=== PATIENT | female | born 1970 | race Caucasian/White ===

== ENCOUNTER 2017-01-26 05:29 | Day surgery (SDC) | payer MEDICAID ==
[2017-01-26] MEDS ORDERED: Propofol 200 MG/20 ML SDV ONE (05:55)
[2017-01-26] MEDS ORDERED: fentaNYL 100 MCG/2 ML SDV ONE (05:56)
[2017-01-26] MEDS ORDERED: Midazolam 1 MG/ML 2 ML SDV ONE (05:56)
[2017-01-26] MEDS ORDERED: Lactated Ringers 1,000 ML IV SCH ×2 (06:30)
[2017-01-26] MEDS ORDERED: Cyanocobalamin (Vitamin B12) 1,000 MCG/ML SDV IM ONE (07:30)
[2017-01-26] MEDS ORDERED: Glycopyrrolate 0.2 MG/ML 2 ML SDV IVPUSH ONE (07:30)
[2017-01-26] MEDS ORDERED: MVI, Adult with Vitamin K 10 ML, Thiamine 200 MG, Chromium/Copper/Mang/Selen/Zn 1 ML in... IV ONE ×4 (08:30)
--- NOTE | 2017-01-28 13:41 | OR ---
DATE OF PROCEDURE: 01/26/2017 PREOPERATIVE DIAGNOSIS: Weight regain along with marked problems with esophageal reflux and intermittent aspiration of gastric contents, status post gastric band placement. POSTOPERATIVE DIAGNOSES: 1. Marked esophageal dilation with retained bile and ingested solid food above laparoscopic adjustable gastric band. 2. Mild antral gastritis. OPERATIVE PROCEDURE: Esophagogastroduodenoscopy with antral biopsies for CLOtest. ANESTHESIA: IV sedation. INDICATIONS FOR PROCEDURE: This is a 46-year-old female presenting with multiple problems with weight regain along the problems with increasingly severe heartburn and intermittent aspiration of esophageal contents. The patient presently has all of the food removed and is to undergo upper GI endoscopy for diagnostic purposes. Potential risks of the procedure including bleeding and perforation were discussed, and the patient wishes to proceed. DETAILS OF PROCEDURE: The patient was taken to the operating room and placed in a left lateral decubitus position. IV sedation was administered, after which the upper GI endoscope was passed orally through the length of the esophagus and into the area above the band. The band appeared to be appropriately located. There was some bilious material as well as retained ingested solids within the esophagus and uppermost stomach above the band and it is associated with a marked dilation of the esophagus. The outlet through the imprint of the band was widely open. There was no mechanical obstruction within the stomach. There was some mild patchy redness in the antrum, but no erosions or ulcers and the visualized portion of the pyloric channel and duodenum were unremarkable. At this point, biopsies were taken from the antrum and sent for CLOtest for H. pylori. Minimal bleeding from the biopsy sites was seen and the procedure was then concluded. The patient would appear to be someone who by necessity needs to have the band removed and convert to Samuel-en-Y gastric bypass status. Given the above findings her insurance company will be contacted regarding prior authorization for that revision. Chris Arellano MD /[id number]
== END 2017-01-26 09:02 | disposition home or self-care (01) ==
LOC: JP.SDS 05:29
PROVIDERS: ATTEND Surgery
DX: K29.50 Unspecified chronic gastritis without bleeding (principal); K95.09 Other complications of gastric band procedure; K22.8 Other specified diseases of esophagus; I10 Essential (primary) hypertension; Z88.0 Allergy status to penicillin; Z91.040 Latex allergy status
CPT/HCPCS: 43239; 87081; J2250; J2704; J3010; J3420; J7120; J3490

== ENCOUNTER 2017-03-30 06:56 | Inpatient (IN) | payer MEDICAID ==
[2017-03-30] MEDS ORDERED: Dextrose 5%-Lactated Ringers 1,000 ML IV SCH ×2 (07:30→17:15)
[2017-03-30] MEDS ORDERED: Celecoxib 200 MG Cap PO ONE (08:00)
[2017-03-30] MEDS ORDERED: Acetaminophen 500 MG Tab PO ONE (08:00)
[2017-03-30] MEDS ORDERED: Gabapentin 300 MG Cap PO ONE (08:00)
[2017-03-30] MEDS ORDERED: Scopolamine 1.5 MG Transdermal Patch TOP SCH (08:00)
[2017-03-30] MEDS ORDERED: Propofol 200 MG/20 ML SDV ONE (09:12)
[2017-03-30] MEDS ORDERED: Neostigmine Methylsulfate 1 MG/ML 5 ML Syringe ONE (09:12)
[2017-03-30] MEDS ORDERED: Ondansetron 4 MG/2 ML SDV ONE (09:12)
[2017-03-30] MEDS ORDERED: Succinylcholine 200 MG/10 ML MDV ONE (09:12)
[2017-03-30] MEDS ORDERED: Glycopyrrolate 0.2 MG/ML 5 ML MDV ONE (09:12)
[2017-03-30] MEDS ORDERED: Dexamethasone 4 MG/ML SDV ONE (09:12)
[2017-03-30] MEDS ORDERED: Rocuronium 50 MG/5 ML Vial ONE ×2 (09:12→14:38)
[2017-03-30] MEDS ORDERED: Lidocaine 2% 100 MG/5 ML Syringe IVPUSH ONE (10:00)
[2017-03-30] MEDS ORDERED: Ketamine 500 MG/5 ML MDV IV SCH (10:00)
[2017-03-30] MEDS ORDERED: Ropivacaine 60 ML, Dexamethasone 8 MG, EPINEPHrine 0.4 MG, Sodium Chloride 0.9% 17.6 ML NERVRT SCH ×4 (10:00)
[2017-03-30] MEDS ORDERED: Meropenem 500 MG in Premix Bag 1 BAG IV ONE (10:00)
[2017-03-30] MEDS ORDERED: cefOXitin 2 GM Vial ONE (10:55)
[2017-03-30] MEDS ORDERED: Bupivacaine 0.5%/EPINEPHrine 1:200,000 50 ML MDV ONE (10:56)
[2017-03-30] MEDS ORDERED: Meropenem 500 MG SDV ONE (12:48)
[2017-03-30] MEDS ORDERED: Labetalol 20 MG/4 ML Syringe ONE (14:21)
[2017-03-30] MEDS ORDERED: fentaNYL 100 MCG/2 ML SDV ONE (16:08)
[2017-03-30] MEDS ORDERED: Lactated Ringers 1,000 ML ONE ×2 (16:08)
[2017-03-30] MEDS: Insulin Aspart 100 Units/ML 3 ML Pen SUBCUT PRN ×2 (17:16→21:27)
[2017-03-30] MEDS: Lidocaine 0.4%/D5W 2 GM/500 ML BAG IV SCH (17:55)
[2017-03-30] MEDS ORDERED: Labetalol 20 MG/4 ML Syringe IVPUSH PRN (18:00)
[2017-03-30] MEDS ORDERED: Metoclopramide 10 MG/2 ML SDV IVPUSH PRN (18:00)
[2017-03-30] MEDS ORDERED: Glucagon,Human Recombinant 1 MG Vial IM PRN (18:00)
[2017-03-30] MEDS ORDERED: Ondansetron 4 MG/2 ML SDV IVPUSH PRN (18:00)
[2017-03-30] MEDS ORDERED: 50% Dextrose in Water 50 ML Syringe IVPUSH PRN (18:00)
[2017-03-30] MEDS ORDERED: diphenhydrAMINE 50 MG/ML SDV IVPUSH PRN (18:00)
[2017-03-30] MEDS: hydrOXYzine HCl 100 MG/2 ML SDV IM PRN (18:04)
[2017-03-30] MEDS: Acetaminophen Soln 650 MG/20.3 ML UD Cup PO SCH ×2 (18:06→23:49)
[2017-03-30] MEDS: MVI, Adult with Vitamin K 10 ML, Thiamine 200 MG, Chromium/Copper/Mang/Selen/Zn 1 ML in... IV SCH ×4 (18:06)
[2017-03-30] MEDS: Pantoprazole 40 MG Vial IVPUSH SCH (18:06)
[2017-03-30] MEDS: SCOPOLAMINE PATCH CHECK TOP SCH (19:22)
[2017-03-30] MEDS: Heparin Sodium 5,000 Units/ML Vial SUBCUT SCH (20:05)
[2017-03-30] MEDS: Meropenem 500 MG in Sodium Chloride 0.9% 50 ML IV SCH (20:05)
[2017-03-30] MEDS: Gabapentin 250 MG/5 ML Solution ML 470 ML Bottle PO SCH (21:09)
[2017-03-31] MEDS: Meropenem 500 MG in Sodium Chloride 0.9% 50 ML IV SCH ×2 (01:40→08:50)
[2017-03-31] MEDS ORDERED: Iohexol 647 MG/ML 50 ML SDV PO STA (02:30)
[2017-03-31] MEDS: Insulin Aspart 100 Units/ML 3 ML Pen SUBCUT PRN (04:46)
[2017-03-31] MEDS: Lidocaine 0.4%/D5W 2 GM/500 ML BAG IV SCH (05:58)
[2017-03-31] MEDS: Acetaminophen Soln 650 MG/20.3 ML UD Cup PO SCH ×3 (05:58→18:07)
[2017-03-31] MEDS ORDERED: ClonazePAM 0.5 MG Tab PO PRN (07:52)
[2017-03-31] MEDS ORDERED: Ondansetron 4 MG Tab.DIS PO PRN (07:54)
[2017-03-31] MEDS: Hydrochlorothiazide 25 MG Tab PO SCH (08:49)
[2017-03-31] MEDS: Heparin Sodium 5,000 Units/ML Vial SUBCUT SCH ×2 (08:49→20:19)
[2017-03-31] MEDS: Gabapentin 250 MG/5 ML Solution ML 470 ML Bottle PO SCH ×3 (08:49→20:19)
[2017-03-31] MEDS: metFORMIN 500 MG/5 ML PO SCH ×2 (08:49→16:51)
[2017-03-31] MEDS: Lactated Ringers 1,000 ML IV SCH (08:50)
[2017-03-31] MEDS: Celecoxib 200 MG Cap PO SCH (08:51)
--- NOTE | 2017-03-31 09:01 | CR ---
UGI wo KUB HISTORY: eval R -Y GBP FINDINGS: After administration of oral contrast, upright views were obtained. Post operative changes gastric bypass. Surgical drains in place. No evidence for leak. Contrast passes freely into proximal small bowel loops. IMPRESSION: No evidence for leak or obstruction.
--- NOTE | 2017-03-31 09:03 | PN ---
DATE OF SERVICE: 03/31/2017 SUBJECTIVE: Monika is postop day #1. She has been ambulating, voiding without difficulty. Upper GI was normal. LIZET drain is pink serosanguineous drainage. Blood sugars were 281 and 279. REVIEW OF SYSTEMS: Remainder of review of systems negative for any pertinent positives and negatives. OBJECTIVE: GENERAL: Monika Robledo is a 47-year-old female. She is alert and orientated. VITAL SIGNS: TPR 99.2, 96, 16; blood pressure 131/78. HEENT: Negative. NECK: Supple. HEART: Regular rate and rhythm. LUNGS: Clear. ABDOMEN: Dressings dry and intact. Abdominal binder is on. LIZET drain intact. EXTREMITIES: Without peripheral edema. ASSESSMENT: Diagnostic laparoscopy with laparoscopic Samuel-en-Y gastric bypass surgery, liver biopsy, partial gastrectomy, removal of laparoscopic gastric band system, and cholecystectomy for recurrent morbid obesity associated with intolerance to laparoscopic gastric band, hepatomegaly, portion of the stomach de-serialized secondary to takedown the gastric band and subacute cholecystitis and cholelithiasis. Date of surgery 03/30/2017. PLAN: 1. Step-one gastric bypass diet with milk and protein shakes. 2. Discontinue D-5-LR IV solution. 3. IV lactated Ringer's 100 mL per hour. 4. Magnesium 2 g q.6 hours IV x48 hours. 5. Metformin 1000 mg liquid b.i.d. 6. Dressing off, may shower. 7. Clonazepam 0.5 mg b.i.d. p.r.n. anxiety. 8. Hydrochlorothiazide 25 mg p.o. daily. 9. She can restart her norethindrone 0.35 mg p.o. daily. 10.Communication order to drink 3 med cups per hour and record at bedside. 11.Good pulmonary toilet. 12.We will evaluate p.r.n. or in a.m. Ivis Chacon PA-C /[id number]
[2017-03-31] MEDS: SCOPOLAMINE PATCH CHECK TOP SCH (09:22)
[2017-03-31] MEDS: NORETHINDRONE 0.35 MG PO SCH (09:22)
[2017-03-31] MEDS: Magnesium Sulfate/Water 2 GM in Premix Bag 1 BAG IV SCH ×3 (09:53→23:04)
[2017-03-31] MEDS: hydrOXYzine HCl 100 MG/2 ML SDV IM PRN ×2 (15:40→20:19)
[2017-03-31] MEDS: MVI, Adult with Vitamin K 10 ML, Thiamine 200 MG, Chromium/Copper/Mang/Selen/Zn 1 ML in... IV SCH ×4 (18:09)
[2017-03-31] MEDS: Pantoprazole 40 MG Vial IVPUSH SCH (18:09)
[2017-04-01] MEDS: Acetaminophen Soln 650 MG/20.3 ML UD Cup PO SCH ×5 (01:21→23:57)
[2017-04-01] MEDS: Lactated Ringers 1,000 ML IV SCH (04:22)
[2017-04-01] MEDS: Magnesium Sulfate/Water 2 GM in Premix Bag 1 BAG IV SCH ×4 (04:22→22:39)
--- NOTE | 2017-04-01 08:34 | PN ---
DATE OF SERVICE: 04/01/2017 SUBJECTIVE: Monika is postop day #2. Blood sugars have come down to 158 and 158. Temp max of 99.5. She has been up, ambulating. Oral intake 1340 and output 4200. She has had a 100% of breakfast, lunch, and dinner. REVIEW OF SYSTEMS: Remainder of review of systems negative for any pertinent positives and negatives. OBJECTIVE: GENERAL: Monika Robledo is a 47-year-old female. She is alert and orientated. Reports her pain is controlled. VITAL SIGNS: TPR is 99.5, 87, 16. Blood pressure 123/59. HEENT: Negative. NECK: Supple. HEART: Regular rate and rhythm. LUNGS: Clear. ABDOMEN: Incisions look good. Abdominal binder is on and LIZET drain intact. ASSESSMENT: Diagnostic laparoscopy with laparoscopic Samuel-en-Y gastric bypass surgery, liver biopsy, partial gastrectomy, removal of laparoscopic gastric band system, and cholecystectomy, for recurrent morbid obesity associated with intolerance to laparoscopic gastric band, hepatomegaly, portion of the stomach de-serialized secondary to takedown of the gastric band and subacute cholecystitis and cholelithiasis. Date of surgery, 03/30/2017. PLAN: 1. Metformin 500 mg b.i.d. 2. Communication order to drink 3 med cups per hour and record at bedside. This is a 2nd order written for this. 3. Good pulmonary toilet. 4. Saline lock IV. 5. We will evaluate p.r.n. or in a.m. 6. Plan discharge in the a.m. Ivis Chacon PA-C /[id number]
[2017-04-01] MEDS ORDERED: Cyanocobalamin (Vitamin B12) 1,000 MCG/ML SDV IM ONE (09:00)
[2017-04-01] MEDS: metFORMIN 500 MG/5 ML PO SCH ×2 (09:27→16:02)
[2017-04-01] MEDS: Hydrochlorothiazide 25 MG Tab PO SCH (09:27)
[2017-04-01] MEDS: Heparin Sodium 5,000 Units/ML Vial SUBCUT SCH ×2 (09:27→20:33)
[2017-04-01] MEDS: Celecoxib 200 MG Cap PO SCH (09:27)
[2017-04-01] MEDS: SCOPOLAMINE PATCH CHECK TOP SCH (09:28)
[2017-04-01] MEDS: NORETHINDRONE 0.35 MG PO SCH (09:28)
[2017-04-01] MEDS: Gabapentin 250 MG/5 ML Solution ML 470 ML Bottle PO SCH ×3 (09:32→20:32)
[2017-04-01] MEDS ORDERED: MVI, Adult with Vitamin K 10 ML, Chromium/Copper/Mang/Selen/Zn 1 ML, Thiamine 200 MG in... IV SCH ×4 (16:00)
[2017-04-01] MEDS ORDERED: Pantoprazole 40 MG Delayed-Release Granules 1 Packet PO SCH (16:30)
[2017-04-02] MEDS: Magnesium Sulfate/Water 2 GM in Premix Bag 1 BAG IV SCH ×2 (05:01→09:35)
[2017-04-02] MEDS: Acetaminophen Soln 650 MG/20.3 ML UD Cup PO SCH ×2 (05:57→12:01)
[2017-04-02] MEDS: Celecoxib 200 MG Cap PO SCH (09:34)
[2017-04-02] MEDS: Hydrochlorothiazide 25 MG Tab PO SCH (09:34)
[2017-04-02] MEDS: Heparin Sodium 5,000 Units/ML Vial SUBCUT SCH (09:34)
[2017-04-02] MEDS: metFORMIN 500 MG/5 ML PO SCH (09:34)
[2017-04-02] MEDS: NORETHINDRONE 0.35 MG PO SCH (09:35)
[2017-04-02] MEDS: Gabapentin 250 MG/5 ML Solution ML 470 ML Bottle PO SCH ×2 (09:35→13:54)
--- NOTE | 2017-04-02 11:05 | DISCH ---
ADMISSION DIAGNOSES: Morbid obesity, cholelithiasis, hypertension, diabetes type 2, nonalcoholic steatohepatitis, history of melanoma, history of laparoscopic gastric banding, BMI 46, panic disorder with agoraphobia and general anxiety disorder. DISCHARGE DIAGNOSES: Diagnostic laparoscopy with laparoscopic Samuel-en-Y gastric bypass surgery, liver biopsy, partial gastrectomy, removal of laparoscopic gastric band system, and cholecystectomy for recurrent morbid obesity associated with intolerance to laparoscopic gastric band, hepatomegaly, portion of the stomach deserosalized secondary to takedown of gastric band and subacute cholecystitis and cholelithiasis. Date of surgery 03/30/2017. Surgeon Chris Arellano MD. HISTORY: Monika Robledo is a 47-year-old female with longstanding history of morbid obesity and gallbladder problems. After preoperative evaluation and discussion of possible risks and possible complications, she wished to proceed with surgical procedure. HOSPITAL COURSE: Monika had her surgery on 03/30/2017. She had no operative complications. On postop day #1, she was started on step-1 with milk and protein drinks diet. She tolerated it well. Her blood sugars were managed. She was on metformin 1000 mg b.i.d. On postop day #2, her blood sugars were lower, running at 158, and metformin was decreased to 500. On postop day 3, her blood sugar was 116. Her metformin was discontinued, and she was able to be discharged to home. Oral intake adequate. Activity good. Vital signs were stable. PHYSICAL EXAMINATION: GENERAL: Monika Robledo is a 47-year-old female. Height is 5 feet 6 inches. Weight is 286 pounds. BMI 46.2. VITAL SIGNS: TPR is 96.9, 87, 18, blood pressure is 134/75. HEENT: Negative. NECK: Supple. HEART: Regular rate and rhythm. LUNGS: Clear. ABDOMEN: Incisions look good, 4 x 4 over LIZET drain site. Abdominal binder is on. EXTREMITIES: Without peripheral edema. DISPOSITION: Discharged to home. CONDITION: Stable and improving. FOLLOWUP: Followup appointment with Ivis Chacon PA-C, at [place], [place] 04/06/2017 at 02:15 p.m. MEDICATIONS: Home medications: Celebrex 200 mg p.o. daily 14 days, Tylenol 650 mg q.6 hours for 2 weeks, Zofran ODT 4 mg p.o. q.4 hours p.r.n. nausea or vomiting, clonazepam 0.5 mg p.o. b.i.d. p.r.n. anxiety, hydrochlorothiazide 25 mg p.o. daily and norethindrone 0.35 mg p.o. daily. DISCHARGE DIET: Step-1 with milk and protein shakes until 04/14/2016. ACTIVITY: No lifting greater than 10 pounds for 2 weeks. Activity, walk at least 6 times daily inside your house. Driving, do not drive for 1 week. Shower/bathing, may shower. Wound incision care, keep site clean and dry. Wear abdominal binder for 2 weeks and then as tolerated. Notify provider if any fever, nausea, or vomiting. SPECIAL INSTRUCTIONS: 1. Use incentive spirometer 10 times every hour while awake for 2 weeks. 2. Check blood sugars in the morning when you first get up and at bedtime and then if you feel like you are having blood sugar problems.
--- NOTE | 2017-04-08 12:25 | OR ---
DATE OF PROCEDURE: 03/30/2017 PREOPERATIVE DIAGNOSES: 1. Recurrent morbid obesity associated with intolerance of laparoscopic adjustable gastric band. 2. Chronic cholecystitis and cholelithiasis. POSTOPERATIVE DIAGNOSES: 1. Recurrent morbid obesity associated with intolerance of laparoscopic adjustable gastric band. 2. Marked hepatomegaly. 3. Portion of stomach deserosalized, status post takedown of gastric band. 4. Subacute and chronic cholecystitis and cholelithiasis. OPERATIVE PROCEDURES: Diagnostic laparoscopy with: 1. Laparoscopic Samuel-en-Y gastric bypass with long limb gastroenterostomy (37876). 2. Ignacio-Cut needle liver biopsy (89536). 3. Partial gastrectomy (58311). 4. Removal of laparoscopic adjustable gastric band system (65212). 5. Laparoscopic cholecystectomy (99965). ANESTHESIA: General. PIPE OR STEAM FITTER FURNACE INSTALLER: Ivis Chacon PA-C. INDICATIONS FOR PROCEDURE: This is a 47-year-old female presenting with recurrent morbid obesity, which has also been associated with intolerance of laparoscopic adjustable gastric band. She is also noted to have some episodes of recurrent biliary colic and of note she recently presented to the emergency room with this problem and was noted to have cholelithiasis. Plan is to proceed with removal of the band along with conversion to Samuel- en-Y gastric bypass and cholecystectomy. Potential risks of the procedure including bleeding, infection, leaks from various GI tract closures, problems with bowel obstruction over time, injury to other viscera in the area including possible injury to common bile duct or stones migrating into the common bile duct were all reviewed, and the patient wishes to proceed. DETAILS OF PROCEDURE: The patient was taken to the operating room and after general endotracheal anesthesia was induced, she was converted to a lithotomy position. During the duration of the procedure, a Goss catheter was inserted which was then removed at the conclusion of the procedure. At 15 cm inferior and 5 cm left of xiphoid process, a transverse incision was made and peritoneal cavity entered under direct vision with an Optiview trocar and inflated to 15 mmHg pressure with CO2. Laparoscope was then reinserted. No underlying trocar insertion site injuries were seen. Following this, bilateral subcostal transverse abdominis plane blocks were placed using standard solution on each side. The needle was visualized to be in the plane just underneath the peritoneum, i.e., in the transverse abdominis muscle layer upon injection. Following this, 5 additional trocars were placed across the upper mid abdomen and general exploration was undertaken. The patient was noted to have a marked hepatomegaly with liver volume being roughly 2 to 3 times normal and liver grossly fatty infiltrated. Ignacio-Cut needle biopsy was obtained from the left lobe of liver, minimal bleeding from the biopsy sites was controlled with electrocautery. At this point, attention was taken to the takedown of the band. The band tubing was divided a few centimeters from the band itself in an oblique manner such that, that end could be confirmed to have been removed upon removal of the port near the end of the case. At that point, adhesions around of the band were taken down. The band was then divided and after cauterizing some additional attachments of the band, the band was removed. This was detached and then removed from the peritoneal cavity at that point with 2 port parts of the band. At this point, then the proximal pouch was constructed. The fibrous capsule around the stomach where the band had been present was then debrided away anteriorly and partially posteriorly. This then allowed formation of the pouch at that level with firings of the JOAQUIN black loads. Upon completion of the pouch, both staple lines appeared to be intact. It was noted that there was some area of deserosalized stomach where the band had away from the stomach and this was felt to be at risk for leaking or dehiscence and this area was resected with 2 firings of JOAQUIN black and purple loads. At this point, the anvil of a 25 mm EEA stapler was attached to a [place] sump type tube. The latter was brought down through the mouth through a small opening in the gastric pouch allowing the anvil to likewise be pulled down to within the gastric pouch. Attention was then taken to the formation of jejunojejunostomy. The small bowel was then identified at the ligament of Treitz and traced down 200 cm distal to that point, was divided with a JOAQUIN stapler. The small bowel was then traced out to additional 150 cm where the [id number] enteroenterostomy was accomplished with an internal firing of the Endo-JOAQUIN 60 mm stapler. The common opening was then closed transversely with same stapler, angle was anastomosed, the mesenteric defect approximated with some 0 Ethibond stitch along with fibrin sealant and divided end of the Samuel limb was then from the mesentery for a few centimeters, which allowed an antecolic position of the Samuel limb up to the level of the gastroesophageal junction without tension. The divided end of the Samuel limb was then opened and the main body of the EEA stapler passed several centimeters in the lumen of the small bowel, brought up the anvil and united with it, thus creating the gastrojejunostomy. Upon removal of the stapler, double donuts of mucosa were noted within it. The small bowel was closed off with a vascular staple line. Gastrojejunostomy was then reinforced with some 3-0 Vicryl seromuscular stitch along with fibrin sealant. Leak test was accomplished which showed no evidence of leak and at that point, attention was taken to the cholecystectomy. The original 5 mm epigastric trocar was exchanged for a 12 mm trocar and the 5 mm trocar also then placed in the right upper quadrant. The gallbladder was retracted anteriorly and laterally and was noted to be actually quite inflamed, being quite edematous, and more or less showing subacute inflammation as this was retracted. The peritoneum over the gallbladder neck was then incised with Harmonic scalpel and the dissection continued around the gallbladder neck and cystic duct junction. Once that area was well delineated as was the adjacent cystic artery, both structures were clipped 3 times proximally and once distally and the gallbladder dissected off the gallbladder bed with Harmonic scalpel and delivered through the left lateral trocar site. At that point, no further problems were noted. Abdomen was irrigated once again with antibiotic-containing saline solution. Two Duke-Verdugo drains were placed, one in the left subcostal area taken adjacent to the gastrojejunostomy near the right lateral trocar site and placed in the area of the gallbladder bed. The remaining trocars were removed. The peritoneal cavity deflated. Incisions were closed with 4-0 Vicryl skin stitch and drains affixed with 4-0 Vicryl stitch as well. The patient was taken to the recovery room in satisfactory condition. Physician corporate administrative assistant, Ivis Chacon, played an essential role in assisting in this case, helping to position the patient, retract structures as needed, as well as suturing and cutting sutures when indicated. Her presence improved patient safety and decreased operative time. Chris Arellano MD /[id number]
== END 2017-04-02 14:30 | disposition home or self-care (01) | DRG 620 ==
LOC: JP.SDS 06:56 → JP.SDSSCHI 06:56 → EDSTATUS 11:00 → JP.2SS 17:00
PROVIDERS: ADMIT Surgery; ATTEND Surgery
PROC: 0D164ZA Bypass Stomach to Jejunum, Percutaneous Endoscopic Approach (ICD-10-PCS; principal; 2017-03-30)
PROC: 0FT44ZZ Resection of Gallbladder, Percutaneous Endoscopic Approach (ICD-10-PCS; 2017-03-30)
PROC: 0FB24ZX Excision of Left Lobe Liver, Percutaneous Endoscopic Approach, Diagnostic (ICD-10-PCS; 2017-03-30)
PROC: 0DP64CZ Removal of Extraluminal Device from Stomach, Percutaneous Endoscopic Approach (ICD-10-PCS; 2017-03-30)
PROC: 0DB64ZZ Excision of Stomach, Percutaneous Endoscopic Approach (ICD-10-PCS; 2017-03-30)
DX: E66.01 Morbid (severe) obesity due to excess calories (principal); K95.09 Other complications of gastric band procedure; K80.00 Calculus of gallbladder with acute cholecystitis without obstruction; Z68.42 Body mass index [BMI] 45.0-49.9, adult; R16.0 Hepatomegaly, not elsewhere classified; Z98.84 Bariatric surgery status; I10 Essential (primary) hypertension; E78.5 Hyperlipidemia, unspecified; F41.1 Generalized anxiety disorder; Z85.820 Personal history of malignant melanoma of skin; E11.9 Type 2 diabetes mellitus without complications; Z79.84 Long term (current) use of oral hypoglycemic drugs; Z91.040 Latex allergy status; Z88.0 Allergy status to penicillin
CPT/HCPCS: 36415; 74240; 74240-26; 80053; 82962; 83735; 84100; 85025; 86850; 86900; 86901; 87493; 88300; 88304; 88305; 88307; 88313; A9270-GY; C9113; J0171; J0330; J0694; J1100; J1644; J2001; J2185; J2405; J2704; J2710; J2795; J3010; J3410; J3411; J3420; J3475; J7030; J7042; J7050; J7120; Q9967